=== PATIENT | male | born 1935 | race Caucasian/White ===

== ENCOUNTER → 2016-05-10 | Outpatient (CLI) | payer MEDICARE, BC ==
[~2016-05-10] MED LIST: ANDR1.62 TOPICAL; CELE1CAP8 PO; CELE200 PO; CIAL5TAB PO; CYTO100T PO; DEXI60CA PO; DICL1GEL3 TOPICAL; ESZO2 PO; FLUT50SP EACH NARE; LEVO50TA48 PO; LEVO75TA3 PO; MISO100T PO; MULT400T PO; NEXI40CA PO; ROSU10 PO; TERA2CAP3 PO; TEST1.623 TD; TRAM50TA PO; XARE20TA PO
--- NOTE | 2016-05-10 15:10 | RADRPT ---
EXAM DATE/TIME: 05/10/2016 14:00 [facility] COMPARISON: No previous studies available for comparison. INDICATIONS : Chronic right hip pain. MEDICAL HISTORY : None. SURGICAL HISTORY : Umbilical hernia repair. Pacemaker. Right knee surgery. ENCOUNTER: Initial ACUITY: 2 weeks PAIN SCORE: 3/10 LOCATION: Right hip. TECHNIQUE: Multiplanar, multisequence MRI examination was performed without contrast. FINDINGS: BONE/CARTILAGE: Moderate-sized right hip osteophytes. Severe diffuse superior right hip articular cartilage thinning. Prominent subchondral reactive bony changes of the right femoral head. LABRUM: Within normal limits. MUSCLES/TENDONS: All of the visualized muscles and tendons are intact. MISCELLANEOUS: Moderate-sized right hip joint effusion. Enlarged prostate measuring 5.6 cm in transverse dimension. CONCLUSION: 1. Right hip arthrosis with moderate-sized osteophytes and severe superior articular cartilage thinni ng. 2. Moderate-sized right hip joint effusion. 3. Enlarged prostate. Ron Richardson MD on May 10, 2016 at 15:04 Board Certified Radiologist. This report was verified electronically.
== END ==
LOC: HRAD 12:54
PROVIDERS: ATTEND Family Medicine
DX: M25.551 Pain in right hip (principal)
CPT/HCPCS: 73721

== ENCOUNTER 2016-06-21 12:59 | Day surgery (SDC) | payer MEDICARE, BC ==
[~2016-06-21 12:59] MED LIST changes: -ANDR1.62 TOPICAL; -CELE1CAP8 PO; -CIAL5TAB PO; -DEXI60CA PO; -DICL1GEL3 TOPICAL; -FLUT50SP EACH NARE; -LEVO75TA3 PO; -MISO100T PO; -MULT400T PO; -XARE20TA PO
[2016-06-21 13:36] VITALS: BP 161/100; PULSE 81; RESP 20; TEMP 98.3; O2SAT 94
[2016-06-21] MEDS ORDERED: DEXI60CA PO (13:46)
[2016-06-21] MEDS ORDERED: FLUT50SP EACH NARE (13:46)
[2016-06-21] MEDS ORDERED: CIAL5TAB PO (13:46)
[2016-06-21] MEDS ORDERED: ANDR1.62 TOPICAL (13:46)
[2016-06-21] MEDS ORDERED: CELE1CAP8 PO (13:46)
[2016-06-21] MEDS ORDERED: DICL1GEL3 TOPICAL (13:46)
[2016-06-21] MEDS ORDERED: MISO100T PO (13:46)
[2016-06-21] MEDS ORDERED: XARE20TA PO (13:46)
[2016-06-21] MEDS ORDERED: MULT400T PO (13:46)
[2016-06-21] MEDS ORDERED: TRAM50TA PO (13:46)
[2016-06-21] MEDS ORDERED: LEVO75TA3 PO (13:46)
[2016-06-21] MEDS ORDERED: TRIAMCINOLONE ACETONIDE 40 MG/ML VIAL ONE (13:53)
[2016-06-21] MEDS ORDERED: ROPIVACAINE 1% PF INJ 20 ML AMP ONE (13:53)
[2016-06-21 14:45] VITALS: BP 129/72; PULSE 74; RESP 20; TEMP 99.2; O2SAT 93
[2016-06-21] MEDS ORDERED: IODIXANOL 320 MG/ML 50 ML VIAL (for Cath Lab) ONE (14:49)
--- NOTE | 2016-06-21 15:01 | RADRPT ---
EXAM DATE/TIME: 06/21/2016 15:09 [facility] COMPARISON: No previous studies available for comparison. INDICATIONS : Patient with a history of chronic pain in right hip. MEDICAL HISTORY : Hypothyroid Osteoarthritis Afib Spinal Stenosis GERD SURGICAL HISTORY : Hernia repair Pacemaker Right knee surgery ENCOUNTER: Initial ACUITY: 4 - 6 months PAIN SCORE: 3/10 LOCATION: Low back FLUORO TIME: 1.2 minutes IMAGE SERIES: 0 CONTRAST: 1cc Visipaque (iodixanol) DEVICE: 22 gauge needle was placed into the right hip joint MEDICATIONS: 1.) 1 cc triamcinolone (Kenalog) IA 2.) 2 cc ropivacaine (Naropin) IA 3.) 2 cc Lidocaine IA RESPONSE: Pre procedure pain level was 4/10. Post procedure pain level was 2/10. PROCEDURE : The risks, benefits and alternatives to the procedure were explained and verbal and written consent w as obtained. The site was prepped in sterile fashion. Full sterile technique was used, including ca p, mask, sterile gloves and gown and a large sterile sheet. Hand hygiene and 2% chlorhexidine and/or betadine/alcohol prep was utilized per protocol for cutaneous antisepsis. The skin and subcutaneous tissues were infiltrated with local anesthetic solution. Under sterile conditions and using aseptic technique with fluoroscopic guidance the joint was punctur ed and positive contrast was injected to confirm intra-articular position. Following this, the presc ribed mixture of Kenalog and local anesthetics was injected. The patient tolerated the procedure wel l and there were no complications. CONCLUSION: Uncomplicated therapeutic injection performed under fluoroscopic guidance. Berto Paz MD on June 21, 2016 at 14:59 Board Certified Radiologist. This report was verified electronically.
== END 2016-06-21 15:10 | disposition home or self-care (01) ==
LOC: HROP 12:59 → HRIP 13:00 → HROP 15:10
PROVIDERS: ATTEND Family Medicine
DX: M16.11 Unilateral primary osteoarthritis, right hip (principal)
CPT/HCPCS: 20610; J2795; J3301; Q9967

== ENCOUNTER → 2016-10-12 | Outpatient (CLI) | payer MEDICARE, BC ==
[~2016-10-12] MED LIST changes: +ANDR1.62 TOPICAL; +CELE1CAP8 PO; +CIAL5TAB PO; +CRANCAP2 PO; +DEXI60CA PO; +DEXI60CA2 PO; +DICL1GEL3 TOPICAL; +FLUT50SP EACH NARE; +HYDR-3288 PO; +LEVO75TA3 PO; +MISO100T PO; +MULT400T PO; +POTA-255 PO; +PROBCAP28 PO; +SAW80CAP2 PO; +XARE10TA PO; +XARE20TA PO
[2016-10-12 10:41] LABS: AUTOMATED NEUTROPHIL # 2.9 TH/MM3 (1.8-7.7); BASOPHIL % 0.7 % (0.0-2.0); EOSINOPHIL # 0.1 TH/MM3 (0-0.4); EOSINOPHIL % 2.2 % (0.0-4.0); HEMATOCRIT 43.8 % (39.0-51.0); HEMO FLAGS DIFF FINAL; LYMPH % 14.1 % (9.0-44.0); LYMPHOCYTE # 0.6 TH/MM3 (1.0-4.8); MEAN CELL VOLUME 84.8 FL (80.0-100.0); MEAN CORPUSCULAR HEMOGLOBIN 27.3 PG (27.0-34.0); MEAN CORPUSCULAR HGB CONC 32.2 % (32.0-36.0); MONO % 12.6 % (0.0-8.0); NEUT % 70.4 % (16.0-70.0); PLATELET COUNT 208 TH/MM3 (150-450); RED BLOOD COUNT 5.17 MIL/MM3 (4.50-5.90); RED CELL DISTRIBUTION WIDTH 15.6 % (11.6-17.2); WHITE BLOOD COUNT 4.1 TH/MM3 (4.0-11.0)
[2016-10-12 10:45] LABS: APTT (PATIENT) 28.7 SEC (24.3-30.1); INTERNATIONAL NORMALIZED RATIO 1.1 RATIO
[2016-10-12 10:46] LABS: BLOOD, URINE NEG (NEG); GLUCOSE,URINE NEG (NEG); KETONE, URINE NEG (NEG); NITRITE,URINE NEG (NEG); URINE COLOR YELLOW (YELLW/STRAW)
[2016-10-12 10:47] LABS: COMMENT (UR) CULT NOT INDICATED; CULTURE IF INDICATED CULT NOT INDICATED
[2016-10-12 11:23] LABS: ALT (GPT) 35 U/L (12-78); ANION GAP 8 MEQ/L (5-15); AST (GOT) 31 U/L (15-37); BICARBONATE 27.6 MEQ/L (21.0-32.0); BLOOD UREA NITROGEN 19 MG/DL (7-18); CHLORIDE 106 MEQ/L (98-107); GLOMERULAR FILTRATION RATE 54 ML/MIN (>89); POTASSIUM 3.9 MEQ/L (3.5-5.1); SODIUM (NA) 142 MEQ/L (136-145)
[2016-10-12 11:26] LABS: ALKALINE PHOSPHATASE 55 U/L (45-117); TOTAL BILIRUBIN ADULT 0.5 MG/DL (0.2-1.0)
--- NOTE | 2016-10-12 13:46 | RADRPT ---
EXAM DATE/TIME: 10/12/2016 12:14 [facility] COMPARISON: No previous studies available for comparison. INDICATIONS : Evaluate for pneumonia, pneumothorax and communicable diseases. Pre-op hip replacement MEDICAL HISTORY : None. SURGICAL HISTORY : Pacemaker. ENCOUNTER: Initial ACUITY: 1 day PAIN SCORE: 0/10 LOCATION: chest FINDINGS: PA and lateral views of the chest demonstrate the lungs to be symmetrically aerated without evidence of mass, infiltrate or effusion. Pacemaker in good position. The cardiomediastinal contours are unr emarkable. Osseous structures are intact. CONCLUSION: No acute disease. Edson Krishna MD FACR on October 12, 2016 at 13:44 Board Certified Radiologist. This report was verified electronically.
[2016-10-12 13:59] LABS: WESTERGREN SEDIMENTATION RATE 1 mm/hr (0-20)
--- NOTE | 2016-10-13 10:01 | EKG ---
Date Performed: 10/12/2016 Time Performed: 11:23:16 PTAGE: 81 years EKG: ELECTRONIC VENTRICULAR PACEMAKER ABNORMAL RHYTHM ECG NO PREVIOUS TRACING DOCTOR: Cody Cabral Interpretating Date/Time 10/13/2016 10:00:20
== END ==
LOC: CPRE 09:09
PROVIDERS: ATTEND Orthopaedic Surgery Sports Medicine
DX: Z01.810 Encounter for preprocedural cardiovascular examination (principal); Z01.812 Encounter for preprocedural laboratory examination; M16.11 Unilateral primary osteoarthritis, right hip; Z95.0 Presence of cardiac pacemaker
CPT/HCPCS: 36415; 71020; 80053; 81001; 82565; 85025; 85610; 85652; 85730; 93005

== ENCOUNTER 2016-10-29 05:15 | Inpatient (IN) | payer MEDICARE, BC ==
[~2016-10-29] VITALS: Ht 172.7 cm; Wt 82.0 kg
[~2016-10-29 05:15] MED LIST changes: -CELE200 PO; -DEXI60CA PO; -ESZO2 PO; -HYDR-3288 PO; -LEVO50TA48 PO; -MISO100T PO; -NEXI40CA PO; -ROSU10 PO; -TERA2CAP3 PO; -TEST1.623 TD; -XARE10TA PO
[2016-10-29] MEDS ORDERED: CHLORHEXIDINE GLUCONATE 2 % 1 PACK (2 CLOTHS) TOPICAL PRN (05:30)
[2016-10-29] MEDS ORDERED: POVIDONE IODINE 5% (ANTISEPSIS KIT) 4 APPLICATIONS EACH NARE PRN (05:30)
[2016-10-29] MEDS ORDERED: SODIUM CHLORID 0.9% 500 ML IV PRN (05:30)
[2016-10-29] MEDS ORDERED: INSULIN HUMAN REGULAR 1,000 UNITS/10 ML VIAL SQ PRN (05:30)
[2016-10-29] MEDS ORDERED: METOPROLOL TARTRATE 25 MG TAB PO PRN (05:30)
[2016-10-29] MEDS ORDERED: LACTATED RINGER'S 1000 ML IV PRN (05:30)
[2016-10-29] MEDS ORDERED: POVIDONE IODINE 7.5% SCRUB 118 ML BOTTLE TOPICAL SCH (05:45)
[2016-10-29] MEDS ORDERED: CHLORHEXIDINE GLUCONATE 4% SOLN 120 ML BTL TOPICAL SCH (05:45)
[2016-10-29] MEDS ORDERED: ceFAZolin 2 GM PREMIX 50 ML IV SCH (05:45)
[2016-10-29] MEDS ORDERED: VANCOMYCIN 1000 MG/NS 250 ML (for <70 kg) IV SCH ×2 (05:45)
[2016-10-29] MEDS ORDERED: DEXAMETHASONE SOD PHOS 20 MG/5 ML VIAL IV PRN (05:45)
[2016-10-29] MEDS ORDERED: TRANEXAMIC ACID INJ 1,200 MG in SODIUM CHLORIDE 0.9% INJ 100 ML IV SCH (05:45)
[2016-10-29] MEDS ORDERED: TRANEXAMIC PERI-ARTICULAR 3,000 MG/NS 100 ML P-ARTICULR SCH ×2 (05:45)
[2016-10-29] MEDS ORDERED: EXPAREL PERI-ARTICULAR INJECTION (TOTAL VOL. 60 ML) P-ARTICULR SCH ×2 (05:45)
[2016-10-29] MEDS ORDERED: GENTAMICIN SULFATE 80 MG/2 ML VIAL ONE (06:08)
[2016-10-29] MEDS ORDERED: ACETAMINOPHEN 1000 MG/100 ML 100 ML IV ONE (06:33)
[2016-10-29] MEDS: SODIUM CHLOR 0.9% 1000 ML INJ 1,000 ML IV SCH ×2 (06:59→21:51)
[2016-10-29] MEDS ORDERED: SODIUM CHLORIDE 0.9% FLUSH 5 ML FLUSH IVF PRN (07:00)
[2016-10-29] MEDS ORDERED: ACETAMINOPHEN/HYDROcodone 325 MG/10 MG TAB PO PRN (07:00)
[2016-10-29] MEDS ORDERED: ONDANSETRON HCL 4 MG/2 ML VIAL IVP PRN (07:00)
[2016-10-29] MEDS ORDERED: Post-op Orders (for Pharmacy) MISC XX ONE (07:00)
[2016-10-29] MEDS ORDERED: diphenhydrAMINE HCL 50 MG/ML VIAL IV PRN (07:00)
[2016-10-29] MEDS ORDERED: MORPHINE SULFATE 4 MG/ML INJ IV PUSH PRN (07:00)
[2016-10-29] MEDS ORDERED: ZOLPIDEM TARTRATE 5 MG TAB PO PRN (07:00)
[2016-10-29] MEDS ORDERED: BISACODYL 10 MG SUPP RECTAL PRN (07:00)
[2016-10-29] MEDS ORDERED: HYDR-3288 PO (07:01)
[2016-10-29] MEDS ORDERED: XARE10TA PO (07:02)
[2016-10-29] MEDS: DRONEDARONE 400 MG TAB PO SCH ×2 (09:00→21:47)
[2016-10-29] MEDS ORDERED: DO NOT ADM ANY ANTICOAGULANT DRUGS PRN ×2 (09:22→09:30)
[2016-10-29] MEDS: SODIUM CHLORIDE 0.9% FLUSH 5 ML FLUSH IVF SCH ×2 (09:30→21:48)
[2016-10-29] MEDS ORDERED: *morphine SULFATE 8 MG/ML PERIprocedure ONLY ONE ×3 (09:32→09:56)
[2016-10-29] MEDS ORDERED: *ONDANSETRON 4 MG VIAL PERIprocedural Use ONLY ONE (09:42)
--- NOTE | 2016-10-29 09:50 | RADRPT ---
EXAM DATE/TIME: 10/29/2016 07:21 [facility] COMPARISON: No previous studies available for comparison. INDICATIONS : Post-op total right hip arthroplasty. MEDICAL HISTORY : None. SURGICAL HISTORY : None. ENCOUNTER: Initial ACUITY: 1 day PAIN SCORE: Non-responsive. LOCATION: Right hip. FINDINGS: A two view examination of the right hip was performed. Total right hip arthroplasty. Both the femoral and acetabular components are properly positioned. No fracture. CONCLUSION: Appropriate postoperative appearance of the right hip status post total arthroplasty. Luis Jamil MD on October 29, 2016 at 9:48 Board Certified Radiologist. This report was verified electronically.
[2016-10-29] MEDS ORDERED: TESTOSTERONE TOPICAL SCH (10:00)
[2016-10-29] MEDS ORDERED: *RESP: ALBUTEROL 2.5 MG/3 ML NEB (PRN) PERIprocedural Use ONLY NEB ONE (10:03)
[2016-10-29] MEDS ORDERED: *HYDROmorphone PF 1 MG VIAL PERIprocedural Use ONLY ONE (10:56)
--- NOTE | 2016-10-29 11:29 | RADRPT ---
EXAM DATE/TIME: 10/29/2016 10:16 [facility] COMPARISON: No previous studies available for comparison. INDICATIONS : Post op total right hip. MEDICAL HISTORY : None. SURGICAL HISTORY : Umbilical hernia repair. Pacemaker. Right knee surgery. ENCOUNTER: Initial ACUITY: 1 day PAIN SCORE: 9/10 LOCATION: Right Hip FINDINGS: The patient is status post a total hip arthroplasty with a bipolar prosthesis. Prosthesis is well-sea sanket. Alignment is anatomic. A fracture is not appreciated. CONCLUSION: Anatomic alignment. Edson Krishna MD FACR Board Certified Radiologist. This report was verified electronically.
[2016-10-29] MEDS ORDERED: LACTATED RINGER'S 1000 ML INJ 1,000 ML IV ONE (12:00)
[2016-10-29] MEDS ORDERED: ePHEDrine/NS 25 MG/5 ML SYR IV ONE (12:00)
[2016-10-29] MEDS ORDERED: PHENYLEPH/NS 1000 MCG/10 ML SYR IV ONE (12:00)
[2016-10-29] MEDS ORDERED: ONDANSETRON HCL 4 MG/2 ML VIAL IV PUSH ONE (12:00)
[2016-10-29] MEDS ORDERED: LIDOCAINE HCL 1% PF 5 ML AMPULE OTHER ONE (12:00)
[2016-10-29] MEDS ORDERED: MIDAZOLAM HCL 2 MG/2 ML VIAL IV ONE (12:00)
[2016-10-29] MEDS ORDERED: NEOSTIGMINE 3 MG/3 ML SYR IV ONE (12:00)
[2016-10-29] MEDS ORDERED: ROCURONIUM INJ 50 MG/5 ML SYRINGE IV PUSH ONE (12:00)
[2016-10-29] MEDS ORDERED: PROPOFOL 200 MG/20 ML AMP IV ONE (12:00)
[2016-10-29] MEDS ORDERED: GLYCOPYRROLATE 0.2 MG/ML VIAL IV ONE (12:00)
[2016-10-29] MEDS ORDERED: DEXAMETHASONE SOD PHOS 4 MG/ML VIAL IV ONE (12:00)
[2016-10-29 16:00] VITALS: BP 110/69; PULSE 100; RESP 20; TEMP 99.3; O2SAT 94
[2016-10-29] MEDS: MAGNESIUM HYDROXIDE SUSP 30 ML CUP PO SCH (16:05)
[2016-10-29] MEDS: ACETAMINOPHEN/HYDROcodone 325 MG/10 MG TAB PO PRN (17:10)
[2016-10-29 20:53] VITALS: BP 119/60; PULSE 79; RESP 18; TEMP 99.1; O2SAT 95
[2016-10-29] MEDS ORDERED: RIVAROXABAN 10 MG TAB PO SCH (22:00)
[2016-10-29 23:10] VITALS: BP 117/60; PULSE 76; RESP 18; TEMP 98.7; O2SAT 95
[2016-10-30] MEDS: ACETAMINOPHEN/HYDROcodone 325 MG/10 MG TAB PO PRN ×5 (00:32→15:12)
[2016-10-30] MEDS: SODIUM CHLOR 0.9% 1000 ML INJ 1,000 ML IV SCH ×2 (02:59→12:59)
[2016-10-30 03:55] VITALS: BP 103/58; PULSE 90; RESP 18; TEMP 98.7; O2SAT 92
[2016-10-30] MEDS ORDERED: LEVOTHYROXINE SODIUM 75 MCG TAB PO SCH (06:00)
[2016-10-30 08:00] VITALS: BP 110/58; PULSE 84; RESP 16; TEMP 98.9; O2SAT 92
[2016-10-30 08:37] LABS: HEMATOCRIT 33.9 % (39.0-51.0); MEAN CELL VOLUME 84.9 FL (80.0-100.0); MEAN CORPUSCULAR HEMOGLOBIN 27.4 PG (27.0-34.0); MEAN CORPUSCULAR HGB CONC 32.2 % (32.0-36.0); PLATELET COUNT 179 TH/MM3 (150-450); RED BLOOD COUNT 3.99 MIL/MM3 (4.50-5.90); RED CELL DISTRIBUTION WIDTH 15.7 % (11.6-17.2); REVIEW FLAG FINAL; WHITE BLOOD COUNT 9.2 TH/MM3 (4.0-11.0)
--- NOTE | 2016-10-30 08:57 | PD.ORT.PN ---
Subjective Post Op Day #: 1 Subjective Remarks pain under control. wants to go home. Objective Vitals Vital Signs Date Time Temp Pulse Resp B/P (MAP) Pulse Ox O2 Delivery O2 Flow Rate FiO2 10/30/16 03:55 98.7 90 18 103/58 (73) 92 10/29/16 23:10 98.7 76 18 117/60 (79) 95 10/29/16 20:53 99.1 79 18 119/60 (79) 95 10/29/16 16:00 99.3 100 20 110/69 (83) 94 10/29/16 13:00 82 16 108/56 (73) 97 Nasal Cannula 2 10/29/16 12:00 80 16 103/53 (70) 97 Nasal Cannula 2 10/29/16 11:30 80 16 110/58 (75) 97 Nasal Cannula 2 10/29/16 11:00 74 16 112/54 (73) 97 Nasal Cannula 2 10/29/16 10:45 74 16 118/62 (80) 96 Nasal Cannula 2 10/29/16 10:30 80 16 121/55 (77) 96 Nasal Cannula 2 10/29/16 10:15 82 16 124/64 (84) 97 Nasal Cannula 2 10/29/16 10:00 82 16 116/57 (76) 95 Nasal Cannula 2 10/29/16 09:45 82 16 100/63 (75) 95 Nasal Cannula 2 10/29/16 09:30 97.7 80 16 120/86 (97) 94 Nasal Cannula 2 I/O 10/29/16 10/29/16 10/29/16 10/30/16 10/30/16 10/30/16 07:00 15:00 23:00 07:00 15:00 23:00 Intake Total 2100 ml 360 ml 480 ml Output Total 1650 ml Balance 450 ml 360 ml 480 ml Intake Oral 360 ml 480 ml IV Total 100 ml Other 2000 ml Output Urine Total 400 ml Estimated Blood Loss 1250 ml # Voids 2 6 # Bowel Movements 0 0 Result Diagram: 10/30/16 0510 Objective Remarks in chair eating, nad incision no erythema, no drainage neg homans nvi Assessment & Plan Ortho Post Op Day #: 1 Problem List: Assessment and Plan s/p R CYNDY anterior approach wbat daily dressing changes xarelto d/c planning home with [facility] and pt - cleared today if does well in PT rx in chart f/up dr. concepcion 2 weeks Wong Hernandez Oct 30, 2016 08:57
[2016-10-30] MEDS: SODIUM CHLORIDE 0.9% FLUSH 5 ML FLUSH IVF SCH (09:00)
[2016-10-30] MEDS ORDERED: CIALIS 5 MG PO SCH ×2 (09:00)
--- NOTE | 2016-10-30 09:00 | HHI.DCPOC ---
Discharge Care Plan Diagnosis: (1) Primary localized osteoarthrosis, pelvic region and thigh Your Health Problems Are: Difficulty with ADL Goals to Promote Your Health * To prevent worsening of your condition and complications * To maintain your health at the optimal level Directions to Meet Your Goals Take your medications as prescribed Follow your dietary instruction Follow activity as directed Keep your appointments as scheduled Take your immunizations and boosters as scheduled If your symptoms worsen call your PCP, if no PCP go to Urgent Care Center or Emergency Room Smoking is Dangerous to Your Health. Avoid second hand smoke Call the 24-hour hour crisis hotline for domestic abuse at Wong Hernandez Oct 30, 2016 09:00
[2016-10-30 09:01] LABS: BICARBONATE 26.2 MEQ/L (21.0-32.0); POTASSIUM 3.8 MEQ/L (3.5-5.1)
[2016-10-30] MEDS: DRONEDARONE 400 MG TAB PO SCH (09:01)
[2016-10-30] MEDS: MAGNESIUM HYDROXIDE SUSP 30 ML CUP PO SCH (09:01)
--- NOTE | 2016-10-30 09:01 | HHI.FF ---
Face to Face Verification Diagnosis: (1) Primary localized osteoarthrosis, pelvic region and thigh Physical Therapy Gait training, Safety evaluation, Transfer training, bed to chair Hip: Total hip, Protocol: Right Right LE Weight Bearing: WB as tolerated Left LE Weight Bearing: WB as tolerated Nursing RN: 3 days/week x 2 weeks Nursing: Dressing changes Dressing Changes: Daily dressing change I have seen patient Khanh Romero on 10/30/16. My clinical findings support the need for the requested home health care services because: Limited ability to care for self High risk of falls I certify that my clinical findings support that this patient is homebound because: Post-op weakness Unsteady gait/balance Wong Hernandez Oct 30, 2016 09:01
[2016-10-30 12:00] VITALS: BP 121/73; PULSE 100; RESP 16; TEMP 97.2; O2SAT 99
[2016-10-30] MEDS ORDERED: MULTIVITAMINS/MINERALS THERAPEUTIC TAB PO SCH (21:00)
[2016-10-30] MEDS ORDERED: DOCUSATE SODIUM 100 MG CAP PO SCH (21:00)
--- NOTE | 2016-10-30 21:27 | MP ---
cc: SHAN GRIFFIN DATE OF SURGERY 10/29/16 PREOPERATIVE DIAGNOSIS Right hip osteoarthritis POSTOPERATIVE DIAGNOSES Right hip osteoarthritis PROCEDURE Right total hip arthroplasty SURGEON Dr. Caron Jones RECORD CHANGER TESTER ROB Marin ANESTHESIA General. ESTIMATED BLOOD LOSS 200 mL COMPLICATIONS None. IMPLANTS USED DePuy Corail size 12 high offset femoral stem, size 54 solid pinnacle Gription cup, 36 ceramic head +8.5 neck. JUSTIFICATION This patient is an 81-year-old male with a history of severe end-stage osteoarthritis involving the right hip joint. He has severe disabling pain with standing, walking, ambulation, activities and severe pain at rest. His pain interferes with his activities of daily living. He has failed greater than 3 months of nonoperative conservative treatment to include medication therapy injections, ambulatory assistive aids, home exercise program, activity modification. The patient is not overweight. IMAGING STUDIES X-ray of the right hip revealed severe end-stage osteoarthritis, [id number] joint space narrowing, subchondral sclerosis, subchondral cyst osteophyte formation and subluxation. The patient was counseled as to risks, benefits and alternative to total hip arthroplasty. The risks were discussed which include but not limited to bleeding, infection, damage to nerves, blood vessels, pain, stiffness, fracture-dislocation, leg length discrepancy, blood clots, pulmonary embolism and even . The patient's pain is severe. He favored the benefits over the risks. He did wish to proceed with surgery. PROCEDURE IN DETAIL A written consent was obtained. The patient identified by name, taken to the operating room, placed supine on the operating room table. General anesthesia was administered as well as 2 grams of IV Ancef and 1 gram of IV vancomycin. All bony prominences and pressure points were well padded. The right hip and right lower extremity were prepped and draped using isopropyl alcohol, Hibiclens solution and Chloraprep solution. After time-out was performed, a longitudinal incision was made over the anterolateral aspect of the right hip. The fascial layer was incised. Dissection was carried over tensor fascia bob beneath the rectus femoris to allow exposure of the anterior hip capsule. A capsulotomy incision was performed. An oscillating saw was used to perform a femoral neck cut. The osteophytic femoral head and neck component was removed. A 10 blade scalpel was used to excise the labrum. Sequential reaming began with a size 49 was carried to a size 54, subsequently a solid pinnacle Gription 54 cup was implanted in approximately 45 degrees of abduction and 10 degrees anteversion. There was good purchase and fixation after insertion of the cup. A screw hole ___was placed followed by a neutral liner. The line was impacted in place and tested for stability. Attention was turned to the femur. The leg was externally rotated, adducted and extended down to the groun. The capsule was released off the undersurface of the greater trochanter to allow for elevation and lateralization of the femur. Box cutting osteotome was used to gain entrance into the intramedullary canal of the femur followed by canal finder and sequential broaching up to a size 12. A calcar planer was used to plane the calcar. Trial head and neck combinations were evaluated and trial components implanted in place. With the implants implanted, the leg achieved external rotation of 70 degrees and extension all the way down to the ground without evidence of anterior instability or impingement. Soft tissue tension felt appropriate. Fluoroscopic imaging showed appropriate implantation of components. Surgical wound was thoroughly irrigated with sterile saline pulse lavage antibiotic impregnated solution. The fascial layer was closed with #1 Vicryl suture. Subcutaneous layer with 2-0 Vicryl suture. Skin was closed with Dermabond. Sterile dressing applied. The patient tolerated the procedure well. No intraoperative complications noted. Abdoulaye Hernandez, physician marketing administrative assistant certified, was present during the entire procedure to include patient positioning and procedure itself. The medical necessity of a physician marketing administrative assistant was indicated in this case due to the complexity of the procedure. He assisted with appropriate manipulation of the leg and also retraction of muscle, tendon, bone, neurovascular structures. He assisted with preparation of bone and also implantation of the prosthetic replacement. MD GALEN Malone/ /9:07 AM /9:08 PM
--- NOTE | 2016-11-02 12:07 | MD ---
cc: CARLOS JOENS ADMISSION DATE: 10/29/2016 DISCHARGE DATE: 10/30/2016 ADMISSION DIAGNOSIS Severe degenerative osteoarthritis right hip. DISCHARGE DIAGNOSIS Severe degenerative osteoarthritis right hip. HISTORY OF PRESENT ILLNESS Mr. Romero is an 81-year-old male who presented orthopedic clinic [facility] for evaluation by Dr. Carlos Jones regarding his severe progressive right hip pain. The patient states the pain has been progressive for several years now for which he has received treatment this however, currently he states that there is a severe aching sensation aggravated by weightbearing activities. He notes it is inhibiting his activities of daily living now and he has no alleviating factors although in the past he has tried medications, assistive devices, physical therapy without relief of symptoms. He does have x-ray evidence of severe degenerative osteoarthritis of the right hip. While in the office the patient was counseled as diagnosis and treatment options, risks, benefits, indications were all discussed. The patient did elect proceed with surgical intervention to include a right total hip arthroplasty. Date of surgery 10/29/2016, right total hip arthroplasty. Postop after surgery the patient admitted to [facility] where he received appropriate medical management pain control, deep venous thrombosis prophylaxis as well as physical therapy. DISCHARGE: Once being discharged the hospital the patient is cleared to go home where he will receive home health care and home physical therapy. He is in stable condition. He may weight bear as tolerated with anterior hip precautions. He has received daily dressing changes and has been instructed on proper wound care management. He has been provided prescriptions for pain control as well as to resume his anticoagulation Xarelto. The patient has also provided a follow-up appointment, approximately two weeks from his date of surgery the patient asked appropriate questions which have been answered. The patient has been discharged. DICTATED BY: ROB Baltazar MD GALEN Malone/luz /8:08 AM /12:02 PM
== END 2016-10-30 17:05 | disposition home health service (06) | DRG 470 ==
LOC: HSDI 05:15 → N06A 14:57
PROVIDERS: ADMIT Orthopaedic Surgery Sports Medicine; ATTEND Orthopaedic Surgery Sports Medicine
PROC: 0SR901A Replacement of Right Hip Joint with Metal Synthetic Substitute, Uncemented, Open Approach (ICD-10-PCS; principal; 2016-10-29 06:47)
DX: M16.11 Unilateral primary osteoarthritis, right hip (principal); I48.91 Unspecified atrial fibrillation; M87.9 Osteonecrosis, unspecified; E78.5 Hyperlipidemia, unspecified; E03.9 Hypothyroidism, unspecified; K21.9 Gastro-esophageal reflux disease without esophagitis; G47.30 Sleep apnea, unspecified; Z87.891 Personal history of nicotine dependence; Z95.0 Presence of cardiac pacemaker
CPT/HCPCS: 73502; 76000; 80048; 85027; 86850; 86900; 86901; 94150; 94664; C1776; C9290; J0131; J0690; J1100; J1170; J1580; J2250; J2270; J2370; J2405; J2710; J3010; J3370; J7030; J7050; J7120; J7613